=== PATIENT | female | born 1990 | race Caucasian/White ===

== ENCOUNTER → 2021-02-16 | Outpatient (CLI) | payer BC ==
[2021-02-16 15:41] LABS: BASO # 0.05 (0.02-0.10); EOS # 0.38 (0.04-0.40); EOS % 4.1 % (1.0-5.0); HEMATOCRIT 47.5 % (37.0-47.0); HEMOGLOBIN 15.7 g/dL (12.5-16.0); LYMPH# 3.16 (1.50-4.00); MEAN CELL VOLUME 84 fl (78-100); MEAN CORPUSCULAR HEMOGLOBIN 28 pg (27-31); MEAN CORPUSCULAR HGB CONC 33 g/dL (33-37); MEAN PLATELET VOLUME 9.9 fl (7.4-10.4); NEU # 4.94 (1.40-6.50); PLATELET COUNT 313 K/mm3 (130-400); RED BLOOD COUNT 5.64 M/mm3 (4.10-5.30); RED CELL DISTRIBUTION WIDTH 12.3 % (11.5-14.5); WHITE BLOOD COUNT 9.2 K/mm3 (4.8-10.8)
[2021-02-16 15:47] LABS: ALBUMIN 4.1 g/dL (3.5-5.0)
[2021-02-16 15:48] LABS: POTASSIUM 4.1 mmol/L (3.5-5.1); SODIUM 140 mmol/L (136-145)
[2021-02-16 15:49] LABS: CALCIUM 9.4 mg/dL (8.3-10.5)
[2021-02-16 15:50] LABS: GLUCOSE 81 mg/dL (65-105); TOTAL PROTEIN 7.4 g/dL (6.4-8.3)
[2021-02-16 15:51] LABS: CARBON DIOXIDE 22 mmol/L (22-29)
[2021-02-16 15:52] LABS: TOTAL BILIRUBIN 0.3 mg/dL (0.2-1.2)
[2021-02-16 15:55] LABS: AST-SGOT 42 U/L (5-34)
[2021-02-16 15:56] LABS: ALT/SGPT 89 U/L (0-55)
[2021-02-16 23:00] LABS: FOLLICLE STIMULATING HORMONE 3.2 mIU/mL (()); PROGESTERONE 0.1 ng/mL (())
[2021-02-18 13:06] LABS: HEPATITIS C ANTIBODY Negative (Negative)
[2021-02-20 11:47] LABS: ESTRONE (E1) LEVEL 73 pg/mL (())
== END ==
LOC: LAB 15:17
PROVIDERS: Family Medicine
DX: N91.2 Amenorrhea, unspecified (principal); R53.83 Other fatigue; E55.9 Vitamin D deficiency, unspecified

== ENCOUNTER → 2021-03-31 | Outpatient (CLI) | payer BC | LOC: RAD 08:08 | DX: K76.0 Fatty (change of) liver, not elsewhere classified (principal) ==